=== PATIENT | female | born 1990 | race Caucasian/White ===

== ENCOUNTER 2018-08-15 09:10 | Emergency (ER) | payer OTHER ==
[2018-08-15 10:22] VITALS: BP 128/80
--- NOTE | 2018-08-15 12:22 | ED ---
Throat Pain/Nasal Congestion - HPI Summary HPI Summary: Patient is a 28-year-old female presenting to the ED with left cheek swelling and dental abscess. She was seen by her dentist last week and was given Clindamycin x 7 days. She states the pain reduced, but the swelling remained. She saw her dentist again yesterday and was given azithromycin. She states however the swelling worsened. She continues to eat and drink okay. Denies any dysphagia or odynophagia. Denies any trismus. Denies fevers, sweats, chills. There is no warmth or erythema to the cheek. She states she had had a root canal in that tooth several years ago and her dentist told her this would need to be redone within the next week. She does not yet have a appointment with the maxillofacial surgeon. - History of Current Complaint Chief Complaint: EDDentalPain Time Seen by Provider: 08/15/18 09:25 Hx Obtained From: Patient Onset/Duration: Gradual Onset Severity: Moderate - . Associated Signs And Symptoms: Negative: Dysphagia, FB Sensation, Drooling, Wheezing, Hoarseness, Sinus Discomfort, Nasal Discharge - Epiglottits Risk Factors Epiglottis Risk Factors: Negative - Allergies/Home Medications Allergies/Adverse Reactions: Allergies Allergy/AdvReac Type Severity Reaction Status Date / Time No Known Allergies Allergy Verified 08/15/18 09:17 PMH/Surg Hx/FS Hx/Imm Hx Previously Healthy: Yes - Immunization History Hx Pertussis Vaccination: No Immunizations Up to Date: Yes Infectious Disease History: No Infectious Disease History: Denies: Traveled Outside the [place] in Last 30 Days - Social History Occupation: Employed Full-time Lives: With Family Alcohol Use: Rare Hx Substance Use: No Substance Use Type: Reports: None Smoking Status (MU): Never Smoked Tobacco Review of Systems Constitutional: Negative Negative: Fever, Chills, Fatigue, Skin Diaphoresis Positive: Dental Pain Negative: Palpitations, Chest Pain Negative: Shortness Of Breath, Cough Genitourinary: Negative Positive: no symptoms reported, see HPI Negative: Arthralgia, Myalgia Positive: Other - left sided cheek swelling All Other Systems Reviewed And Are Negative: Yes Physical Exam Triage Information Reviewed: Yes Vital Signs On Initial Exam: Initial Vitals Temp Pulse Resp BP Pulse Ox 98.2 F 89 14 132/70 100 08/15/18 09:17 08/15/18 09:17 08/15/18 09:17 08/15/18 09:17 08/15/18 09:17 Vital Signs Reviewed: Yes Appearance: Positive: Well-Appearing, Well-Nourished Skin: Positive: Skin Color Reflects Adequate Perfusion Head/Face: Positive: Normal Head/Face Inspection Eyes: Positive: EOMI, LAKESHA, Conjunctiva Clear Dental: Positive: Abscess @ - no obvious abscess - swelling at tooth #14 Neck: Positive: No Lymphadenopathy Respiratory/Lung Sounds: Positive: Clear to Auscultation Cardiovascular: Positive: RRR, Pulses are Symmetrical in both Upper and Lower Extremities Musculoskeletal: Positive: Strength/ROM Intact Neurological: Positive: Sensory/Motor Intact, Alert, Oriented to Person Place, Time, Speech Normal Psychiatric: Positive: Affect/Mood Appropriate AVPU Assessment: Alert Diagnostics - Vital Signs Vital Signs Temp Pulse Resp BP Pulse Ox 08/15/18 10:21 98.8 F 88 16 128/80 99 08/15/18 09:17 98.2 F 89 14 132/70 100 - Laboratory Lab Statement: Any lab studies that have been ordered have been reviewed, and results considered in the medical decision making process. EENT Course/Dx - Course Course Of Treatment: On physical examination, there is slight swelling to the left side of the upper cheek. The swelling and abscess is to tooth #14 where her root canal is located. She denies any fevers, sweats, chills. Denies any trismus. Continues to eat and drink okay, denies any dysphagia or odynophagia. This patient appears nontoxic, no signs of sepsis and no worsening infection or concern for deep space neck infection or fecal infection, patient will again be treated with a course of antibiotics at this time. She is given penicillin 500 mg with daily 7 days we'll discontinue her azithromycin she has only had 1 dose. She will follow-up with her dentist as scheduled on Friday morning, 2 days from today and will call her oral surgeon for an appointment - Diagnoses Provider Diagnoses: Dental abscess Discharge - Sign-Out/Discharge Documenting (check all that apply): Patient Departure - Discharge Plan Condition: Stable Disposition: HOME Prescriptions: Penicillin VK 500 MG TAB(NF) [Penicillin VK 500 mg Tab(NF)] 500 mg PO QID #28 tab MDD 4 Referrals: No Primary Care Phys,NOPCP [Primary Care Provider] - Additional Instructions: Discontinue other antiobiotics. Continue with penicillin 4x daily x 7 days Follow up with dentist KEYON Follow up with surgeon KEYON If you develop worsening swelling, redness of the cheek, fevers, sweats or chills - return to the ED - Billing Disposition and Condition Condition: STABLE Disposition: Home
== END 2018-08-15 10:21 | disposition home or self-care (01) ==
LOC: ED 09:10
DX: K04.7 Periapical abscess without sinus (principal); K08.89 Other specified disorders of teeth and supporting structures
CPT/HCPCS: 99281